=== PATIENT | male | born 1990 ===

== ENCOUNTER 2020-12-23 13:52 | Inpatient (IN) | payer OTHER ==
[~2020-12-23] VITALS: Ht 177.8 cm; Wt 115.5 kg
[2020-12-23 14:38] LABS: MICROSCOPIC INDICATED
[2020-12-23 15:03] LABS: MEAN CORPUSCULAR HEMOGLOBIN 31.4 pg (27.5-34.5); MEAN CORPUSCULAR HGB CONC 35.3 g/dL (33.2-36.2); MEAN PLATELET VOLUME 10.8 fL (7.4-10.4); PLATELET COUNT 218 x10^3/uL (130-400); RED BLOOD COUNT 5.16 x10^6/uL (4.38-5.82)
[2020-12-23 15:04] LABS: ALBUMIN 4.3 g/dL (3.4-5.0); ANION GAP 5 mmol/L (5-15); CALCIUM 9.6 mg/dL (8.5-10.1); CHLORIDE 109 mmol/L (98-107)
[2020-12-23 15:09] LABS: ALANINE AMINOTRANSFERASE 44 U/L (12-78); ALKALINE PHOSPHATASE 81 U/L (45-117); BILIRUBIN,TOTAL 1.6 mg/dL (0.2-1.0); CREATININE 0.95 mg/dL (0.7-1.3); TOTAL PROTEIN 8.5 g/dL (6.4-8.2)
[2020-12-23 15:39] LABS: BAND#(MANUAL) 0.52 x10^3/uL; BANDS%(MANUAL) 2 % (0-7); LYMPH#(MANUAL) 2.08 x10^3/uL (1-3.4); LYMPHS% (MANUAL) 8 % (22-44); METAMYELOCYTES# (MANUAL) 0.26 x10^3/uL (0-0); METAMYELOCYTES% (MANUAL) 1 % (0-1); MONOS% (MANUAL) 5 % (2-9); REACTIVE LYMPHS # (MANUAL) 0.26 x10^3/uL (0-0); REACTIVE LYMPHS % (MANUAL) 1 % (0-0); SEG#(MANUAL) 21.58 x10^3/uL (1.8-6.8); SEGS% (MANUAL) 83 % (42-75)
[2020-12-23 15:40] LABS: ANISOCYTOSIS 1+
--- NOTE | 2020-12-23 15:44 | NUR ---
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
--- NOTE | 2020-12-23 15:55 | NUR ---
ASSUMED CARE OF PT. PT HERE W/ C/O OF ABD PAIN STARTED YESTERDAY. REPORTS TENDERNESS OF ABD. HE IS IN [facility]PITAL GOWN LAYING ON [place] [address]. CALL LIGHT W/ IN REACH.
[2020-12-23 15:59] LABS: OVALOCYTES 1+
[2020-12-23 16:00] LABS: STOMATOCYTES 2+
[2020-12-23] MEDS ORDERED: SODIUM CHLORIDE FLUSH 10ML SYR IVF ONE (16:00)
[2020-12-23] MEDS ORDERED: HYDROmorphone 1 MG/ML, 1ML INJ IV ONE (16:00)
[2020-12-23] MEDS ORDERED: ONDANSETRON 2MG/ML, 2ML IVPush ONE (16:00)
[2020-12-23] MEDS ORDERED: SODIUM CHLORIDE 0.9% 1,000ML IVBOLUS ONE (16:00)
[2020-12-23 16:03] LABS: <PLATELET ESTIMATE> ADEQUATE; LARGE PLATELETS 1+
[2020-12-23] MEDS ORDERED: HYDROmorphone 1 MG/ML, 1ML INJ ONE ×2 (16:25→19:27)
[2020-12-23] MEDS ORDERED: ONDANSETRON 2MG/ML, 2ML ONE ×2 (16:25→19:22)
--- NOTE | 2020-12-23 16:36 | NUR ---
PT MEDICATED PER AUG. TECH BEDSIDE. NADN, CALL LIGHT W/IN REACH.
--- NOTE | 2020-12-23 16:53 | NUR ---
pt to CT
--- NOTE | 2020-12-23 17:17 | NUR ---
pt resting on gurney, htn but other vss. nadn, call light w/in reach.
[2020-12-23] MEDS ORDERED: OMNIPAQUE 350 MG/ML, 100ML BOTTLE ONE (17:23)
[2020-12-23] MEDS ORDERED: CEFOTETAN PMX 1GM/50ML 50 ML IVPB ONE (17:30)
--- NOTE | 2020-12-23 18:02 | NUR ---
pt medicated per aug. Pt updated on poc, Rapid COVID collected walked to lab. [facility], CALL LIGHT W/IN REACH.
[2020-12-23] MEDS ORDERED: BUPIVACAINE/PF 0.5% ONE (18:22)
[2020-12-23] MEDS ORDERED: EPINEPHRINE 1 MG/ML, 1ML ONE (18:23)
[2020-12-23] MEDS ORDERED: MIDAZOLAM 1 MG/ML, 2ML ONE (18:29)
[2020-12-23] MEDS ORDERED: FENTANYL PF 100 MCG/2ML ONE ×2 (18:30→19:24)
--- NOTE | 2020-12-23 18:31 | NUR ---
REPORT TO OR GIVEN
--- NOTE | 2020-12-23 18:33 | NUR ---
JOI -PT IS POSITIVE FOR COVID
--- NOTE | 2020-12-23 18:34 | NUR ---
CALLED MAIN OR TO NOTIFY THEM THAT PT WAS POSITIVE FOR COVID. SPOKE TO PT MOTHER, JHON WITH PT CONSENT AND UPDATED HER ON PATIENT CONDITION.
[2020-12-23] MEDS ORDERED: HYDROmorphone 1 MG/ML, 1ML INJ IVPush PRN (19:00)
[2020-12-23] MEDS ORDERED: IBUPROFEN 600 MG TABLET PO PRN (19:00)
[2020-12-23] MEDS ORDERED: FENTANYL PF 100 MCG/2ML IV PRN (19:00)
[2020-12-23] MEDS ORDERED: LABETALOL 5MG/ML, 20ML IV PRN (19:00)
[2020-12-23] MEDS ORDERED: EPHEDRINE 50 MG/ML, 1ML IVPush PRN (19:00)
[2020-12-23] MEDS ORDERED: morphine SULFATE 10 MG/ML, 1ML IVPush PRN (19:00)
[2020-12-23] MEDS ORDERED: ZOLPIDEM 5MG TABLET PO PRN (19:00)
[2020-12-23] MEDS ORDERED: OXYcodone 5 MG/5 ML ORAL.SOL UDC PO PRN (19:00)
[2020-12-23] MEDS ORDERED: ACETAMINOPHEN 325 MG TABLET PO PRN (19:00)
[2020-12-23] MEDS ORDERED: PROMETHAZINE 25 MG/ML, 1ML IVPush PRN (19:00)
[2020-12-23] MEDS ORDERED: hydrALAzine 20 MG/ML, 1ML IV PRN (19:00)
[2020-12-23] MEDS ORDERED: LORazepam 2 MG/ML, 1ML IVPush PRN (19:00)
[2020-12-23] MEDS ORDERED: ONDANSETRON 2MG/ML, 2ML IVPush PRN ×2 (19:00)
[2020-12-23] MEDS ORDERED: CYCLOBENZAPRINE 10 MG TABLET PO PRN (19:00)
[2020-12-23] MEDS ORDERED: GUAIFENESIN/DM 200-20MG, 10ML UDC PO PRN (19:00)
[2020-12-23] MEDS ORDERED: ENALAPRILAT 1.25 MG/ML, 2ML IVPush PRN (19:00)
[2020-12-23] MEDS ORDERED: DOCUSATE 100 MG CAPSULE PO PRN (19:00)
[2020-12-23] MEDS ORDERED: DEXAMETHASONE 4 MG/ML, 5ML ONE (19:16)
[2020-12-23] MEDS ORDERED: SUGAMMADEX 200 MG/2 ML IVPush ONE (19:16)
[2020-12-23] MEDS ORDERED: KETOROLAC 30 MG/1 ML ONE (19:20)
[2020-12-23] MEDS ORDERED: ROCURONIUM 10MG/ML,5ML ONE (19:22)
[2020-12-23] MEDS ORDERED: SUCCINYLCHOLINE 20 MG/ML, 10ML ONE (19:22)
[2020-12-23] MEDS ORDERED: PROPOFOL 10 MG/ML, 20ML ONE (19:22)
[2020-12-23] MEDS ORDERED: CEFOTETAN 2 GM ONE (19:22)
[2020-12-23] MEDS ORDERED: OXYcodone 5 MG/5 ML ORAL.SOL UDC ONE (19:24)
[2020-12-23] MEDS ORDERED: BUPIVACAINE/PF-EPI 0.5% 1:200K INFIL ONE (19:27)
[2020-12-23] MEDS: LACTATED RINGERS 1,000 ML IV SCH (23:08)
[2020-12-24 00:57] VITALS: BP 153/80
[2020-12-24] MEDS: OXYcodone IR 5MG TABLET PO PRN ×2 (02:46→21:04)
[2020-12-24 04:21] VITALS: BP 134/81
[2020-12-24 05:28] LABS: ANION GAP 3 mmol/L (5-15); CALCIUM 8.8 mg/dL (8.5-10.1); CHLORIDE 108 mmol/L (98-107)
[2020-12-24 05:29] LABS: CREATININE 0.92 mg/dL (0.7-1.3)
[2020-12-24 05:30] LABS: MEAN CORPUSCULAR HEMOGLOBIN 31.5 pg (27.5-34.5); MEAN CORPUSCULAR HGB CONC 35.5 g/dL (33.2-36.2); MEAN PLATELET VOLUME 10.9 fL (7.4-10.4); PLATELET COUNT 207 x10^3/uL (130-400); RED BLOOD COUNT 4.93 x10^6/uL (4.38-5.82); RED CELL DISTRIBUTION WIDTH 15.1 % (9.4-14.8)
[2020-12-24 06:15] LABS: LYMPH#(MANUAL) 0.72 x10^3/uL (1-3.4); LYMPHS% (MANUAL) 2 % (22-44); MONOS#(MANUAL) 0.36 x10^3/uL (0.3-2.7); MONOS% (MANUAL) 1 % (2-9); SEG#(MANUAL) 35.02 x10^3/uL (1.8-6.8); SEGS% (MANUAL) 97 % (42-75)
[2020-12-24 06:16] LABS: <RBC MORPHOLOGY> NORMAL
[2020-12-24 06:17] LABS: <PLATELET ESTIMATE> ADEQUATE; <PLT MORPHOLOGY> NORMAL PLT MORPH
[2020-12-24 08:51] VITALS: BP 156/94
[2020-12-24] MEDS: LACTATED RINGERS 1,000 ML IV SCH (14:40)
[2020-12-24 14:42] VITALS: BP 149/89
[2020-12-24 19:33] VITALS: BP 157/92
[2020-12-25] MEDS: LACTATED RINGERS 1,000 ML IV SCH (01:51)
[2020-12-25 01:54] VITALS: BP 165/99
[2020-12-25 05:35] LABS: MEAN CORPUSCULAR HEMOGLOBIN 31.7 pg (27.5-34.5); MEAN CORPUSCULAR HGB CONC 35.8 g/dL (33.2-36.2); MEAN PLATELET VOLUME 11.3 fL (7.4-10.4); PLATELET COUNT 192 x10^3/uL (130-400); RED BLOOD COUNT 4.71 x10^6/uL (4.38-5.82); RED CELL DISTRIBUTION WIDTH 15.2 % (9.4-14.8)
[2020-12-25 05:42] LABS: ALANINE AMINOTRANSFERASE 31 U/L (12-78); ALBUMIN 3.2 g/dL (3.4-5.0); ANION GAP 3 mmol/L (5-15); CALCIUM 8.6 mg/dL (8.5-10.1); CHLORIDE 107 mmol/L (98-107); CREATININE 0.81 mg/dL (0.7-1.3)
[2020-12-25 05:44] LABS: ALKALINE PHOSPHATASE 63 U/L (45-117); TOTAL PROTEIN 7.4 g/dL (6.4-8.2)
[2020-12-25 06:45] LABS: BASOS#(MANUAL) 0.18 x10^3/uL (0-0.1); BASOS% (MANUAL) 1 % (0-1); LYMPH#(MANUAL) 1.81 x10^3/uL (1-3.4); LYMPHS% (MANUAL) 10 % (22-44); METAMYELOCYTES# (MANUAL) 0.18 x10^3/uL (0-0); METAMYELOCYTES% (MANUAL) 1 % (0-1); MONOS#(MANUAL) 1.45 x10^3/uL (0.3-2.7); MONOS% (MANUAL) 8 % (2-9); SEG#(MANUAL) 14.48 x10^3/uL (1.8-6.8); SEGS% (MANUAL) 80 % (42-75)
[2020-12-25 06:48] LABS: ANISOCYTOSIS 1+; OVALOCYTES 1+
[2020-12-25 06:49] LABS: <PLATELET ESTIMATE> ADEQUATE; LARGE PLATELETS 1+
[2020-12-25 08:30] VITALS: BP 144/81
[2020-12-25] MEDS ORDERED: DOCU-131 PO (09:26)
[2020-12-25] MEDS ORDERED: OXYC5TAB98 PO (09:26)
== END 2020-12-25 14:28 | disposition home or self-care (01) | DRG 341 ==
LOC: ED 18:11 → EDIP 18:18 → 4NE 21:45
PROVIDERS: ADMIT Internal Medicine; ATTEND Hospitalist
PROC: 0DTJ4ZZ Resection of Appendix, Percutaneous Endoscopic Approach (ICD-10-PCS; principal; 2020-12-23 19:15)
DX: K35.80 Unspecified acute appendicitis (principal); U07.1 COVID-19; E66.9 Obesity, unspecified; R73.9 Hyperglycemia, unspecified; E87.8 Other disorders of electrolyte and fluid balance, not elsewhere classified; F12.90 Cannabis use, unspecified, uncomplicated; F17.210 Nicotine dependence, cigarettes, uncomplicated; I10 Essential (primary) hypertension; Z68.34 Body mass index [BMI] 34.0-34.9, adult; Z90.49 Acquired absence of other specified parts of digestive tract
CPT/HCPCS: 36415; 84145; 96361; 96365; 96375; 99285; S0020; 74177; 76700; 80048; 80053; 81001; 83036; 83605; 83690; 83735; 84100; 85025; 87040; 87086; 87635; 88304; G0378; J0171; J1100; J1170; J1885; J2250; J2405; J2704; J3010; Q9967; J0330; J7030; J7120